=== PATIENT | male | born 1980 | race Caucasian/White ===

== ENCOUNTER 2017-09-21 03:05 | Inpatient (IN) | payer MEDICAID, OTHER ==
[2017-09-21] MEDS: VANCOMYCIN 1 GM (PMX) 250 ML IVPB (04:14)
[2017-09-21 04:18] LABS: ADD MAN DIFF? NO
[2017-09-21 04:31] LABS: BASOPHILS % 0.4 % (0.0-2.0); EOSINOPHILS # 0.1 10^3/ul (0.0-0.5); EOSINOPHILS % 2.2 % (0.0-7.0); HEMOGLOBIN 14.8 g/dl (14.0-18.0); LYMPHOCYTES # 1.9 10^3/ul (0.8-2.9); LYMPHOCYTES % 35.8 % (15.0-51.0); MEAN CORPUSCULAR HEMOGLOBIN 30.1 pg (29.0-33.0); MEAN CORPUSCULAR HGB CONC 34.4 g/dl (32.0-37.0); MEAN CORPUSCULAR VOLUME 87.6 fl (82.0-101.0); MEAN PLATELET VOLUME 9.4 fl (7.4-10.4); MONOCYTE # 0.6 10^3/ul (0.3-0.9); MONOCYTES % 10.3 % (0.0-11.0); NEUTROPHIL # 2.7 10^3/ul (1.6-7.5); NEUTROPHILS % 51.1 % (39.0-77.0); PLATELET COUNT 221 10^3/UL (140-415); RED BLOOD COUNT 4.91 10^6/ul (4.70-6.10); RED CELL DISTRIBUTION WIDTH 12.7 % (11.5-14.5)
[2017-09-21 04:31] LABS: WHITE BLOOD COUNT 5.3 10^3/ul (4.8-10.8)
[2017-09-21 04:35] LABS: INR 0.96; PROTIME 12.9 Sec (11.9-14.9)
[2017-09-21 04:36] LABS: PARTIAL THROMBOPLASTIN TIME 41.9 Sec (25.0-35.0)
[2017-09-21] MEDS: morphine 4 MG/ML VIAL IV (04:37)
[2017-09-21] MEDS: ONDANSETRON 4 MG INJ IV (04:37)
[2017-09-21 04:43] LABS: ALANINE AMINOTRANSFERASE 49 IU/L (13-69); ALBUMIN 4.9 g/dl (3.3-4.9); ALBUMIN/GLOBULIN RATIO 1.28; ALKALINE PHOSPHATASE 84 IU/L (42-121); ANION GAP 16 (8-16); ASPARTATE AMINO TRANSFERASE 40 IU/L (15-46); BILIRUBIN,INDIRECT 0.3 mg/dl (0-1.1); BILIRUBIN,TOTAL 0.3 mg/dl (0.2-1.3); BLOOD UREA NITROGEN 15 mg/dl (7-20); CALCIUM 9.7 mg/dl (8.4-10.2); CARBON DIOXIDE 27 mmol/L (21-31); CHLORIDE 105 mmol/L (97-110); CREATININE 0.86 mg/dl (0.61-1.24); GLUCOSE 99 mg/dl (70-220); POTASSIUM 3.7 mmol/L (3.5-5.1); SODIUM 144 mmol/L (135-144); TOTAL PROTEIN 8.7 g/dl (6.1-8.1)
[2017-09-21 04:56] LABS: ADD UMIC YES; UR ASCORBIC ACID NEGATIVE (NEGATIVE); UR BILIRUBIN (Dip) NEGATIVE (NEGATIVE); UR BLOOD (Dip) 1+ mg/dL (NEGATIVE); UR CLARITY CLOUDY (CLEAR); UR COLOR YELLOW (YELLOW); UR GLUCOSE (Dip) NEGATIVE (NEGATIVE); UR KETONES (Dip) NEGATIVE (NEGATIVE); UR LEUKOCYTE ESTERASE (Dip) NEGATIVE Leu/ul (NEGATIVE); UR MUCUS FEW /HPF (NONE SEEN); UR NITRITE (Dip) NEGATIVE (NEGATIVE); UR RBC 2 /HPF (0-5); UR SPECIFIC GRAVITY (Dip) 1.032 (1.003-1.030); UR TOTAL PROTEIN (Dip) 1+ mg/dl (NEGATIVE); UR UROBILINOGEN (Dip) 1+ mg/dL (NEGATIVE); UR WBC 0 /HPF (0-5)
[2017-09-21 06:00] LABS: ERYTHROCYTE SEDIMENTATION RATE 17 mm/Hr (0-15)
[2017-09-21] MEDS ORDERED: ONDANSETRON 4 MG INJ IV (12:00)
[2017-09-21] MEDS ORDERED: VANCOMYCIN IV PER PHARMACY XX (12:00)
[2017-09-21] MEDS: CEFTRIAXONE 1 GM/50 ML (PMX) 50 ML IVPB (14:01)
[2017-09-21] MEDS: LIDOCAINE 1% (MPF) 5 ML VIAL SC (14:14)
[2017-09-21] MEDS: HYDROCODONE/APAP (5/325) TAB PO ×2 (14:21→20:43)
[2017-09-21] MEDS: SOD CHLORIDE 0.9% 100 ML (16:00)
[2017-09-21] MEDS: VANCOMYCIN 1 GM 250 ML IVPB (16:00)
[2017-09-21] MEDS: DOCUSATE SODIUM 100 MG CAP PO (20:43)
[2017-09-22] MEDS: VANCOMYCIN 1 GM 250 ML IVPB ×2 (04:01→16:18)
[2017-09-22] MEDS: DOCUSATE SODIUM 100 MG CAP PO ×2 (09:11→20:07)
[2017-09-22] MEDS: HYDROCODONE/APAP (5/325) TAB PO (09:11)
[2017-09-22] MEDS: CEFTRIAXONE 1 GM/50 ML (PMX) 50 ML IVPB (12:10)
[2017-09-22 15:56] LABS: VANCOMYCIN,TROUGH 7.5 ug/ml (10.0-20.0)
[2017-09-23] MEDS: VANCOMYCIN 1.5 GM in DEXTROSE 5% 500 ML IVPB ×2 (01:12→13:27)
[2017-09-23] MEDS: HYDROCODONE/APAP (5/325) TAB PO ×2 (01:17→09:34)
[2017-09-23 07:20] LABS: BLOOD UREA NITROGEN 9 mg/dl (7-20)
[2017-09-23] MEDS: DOCUSATE SODIUM 100 MG CAP PO (09:34)
[2017-09-23] MEDS: CEFTRIAXONE 1 GM/50 ML (PMX) 50 ML IVPB (12:40)
[2017-09-24] MEDS: DOCUSATE SODIUM 100 MG CAP PO ×2 (00:04→08:50)
[2017-09-24] MEDS: HYDROCODONE/APAP (5/325) TAB PO ×2 (00:04→13:52)
[2017-09-24] MEDS: VANCOMYCIN 1.5 GM in DEXTROSE 5% 500 ML IVPB ×2 (00:05→12:15)
[2017-09-24] MEDS: CEFTRIAXONE 1 GM/50 ML (PMX) 50 ML IVPB (11:33)
== END 2017-09-24 20:30 | disposition home or self-care (01) | DRG 540 ==
LOC: FTE 03:05 → MS2 09:51
PROC: 02HV33Z Insertion of Infusion Device into Superior Vena Cava, Percutaneous Approach (ICD-10-PCS; principal; 2017-09-21)
DX: M86.141 Other acute osteomyelitis, right hand (principal); R65.10 Systemic inflammatory response syndrome (SIRS) of non-infectious origin without acute organ dysfunction
CPT/HCPCS: 36415; 36569; 71045; 73130-RT; 76937; 80053; 80202; 81001; 82565; 84520; 85025; 85610; 85651; 85730; 87040; 87086; 96365; 96366; 96368; 96375; 99285-25